=== PATIENT | male | born 1985 | race Caucasian/White ===

== ENCOUNTER 2018-04-05 01:03 | Inpatient (IN) | payer OTHER ==
[2018-04-05] MEDS ORDERED: ONDANSETRON PF 4 MG/2 ML VIAL. IV ×3 (03:30→09:45)
[2018-04-05] MEDS: IV NORMAL SALINE 1000ML BAG 1,000 ML IV ×2 (03:38→13:30)
[2018-04-05] MEDS: MORPHINE SULFATE 10 MG/ML VIAL. IV ×2 (06:29→20:47)
[2018-04-05] MEDS: IV RINGERS,LACTATED 1000ML 1,000 ML IV (07:13)
[2018-04-05] MEDS ORDERED: fentaNYL PF VIAL 100 MCG/2 ML VIAL IV (07:15)
[2018-04-05] MEDS ORDERED: LIDOCAINE 1% PF 2 ML VIAL. ID (07:15)
[2018-04-05] MEDS ORDERED: PROPOFOL 20 ML IV (07:40)
[2018-04-05] MEDS ORDERED: LIDOCAINE 2% PF Vial for OR 5 ML VIAL. (07:40)
[2018-04-05] MEDS ORDERED: ROCURONIUM 50 MG/5 ML VIAL. (07:41)
[2018-04-05] MEDS ORDERED: fentaNYL PF VIAL 100 MCG/2 ML VIAL ×3 (07:42→10:32)
[2018-04-05] MEDS ORDERED: NEOSTIGMINE METHYLSULFATE 5 MG/5 ML SYRINGE. (07:46)
[2018-04-05] MEDS ORDERED: GLYCOPYRROLATE 1 MG/5 ML VIAL. (07:47)
[2018-04-05] MEDS ORDERED: MIDAZOLAM HCL/PF 2 MG/2 ML VIAL. (07:59)
[2018-04-05] MEDS ORDERED: SUCCINYLCHOLINE 200 MG/10 ML VIAL. (08:13)
[2018-04-05] MEDS ORDERED: ONDANSETRON PF 4 MG/2 ML VIAL. (08:54)
[2018-04-05] MEDS ORDERED: DEXAMETHASONE SOD PHOS 20 MG/5 ML VIAL. (08:54)
[2018-04-05] MEDS: BUPIVACAINE-EPI 0.25%-1:200000 50 ML VIAL. (09:05)
[2018-04-05] MEDS ORDERED: 0.9 % SODIUM CHLORIDE 10 ML DISP.SYRIN. IV (09:45)
[2018-04-05] MEDS ORDERED: diphenhydrAMINE HCL 25 MG CAPSULE PO (09:45)
[2018-04-05] MEDS ORDERED: diphenhydrAMINE 50 MG/ML VIAL IV (09:45)
[2018-04-05] MEDS ORDERED: DEXTROSE 50% 25 GM / 50ML DISP.SYRIN. IV (09:45)
[2018-04-05] MEDS ORDERED: MORPHINE SULFATE 2 MG/ML DISP.SYRIN. IV (09:45)
[2018-04-05] MEDS: fentaNYL PF VIAL 100 MCG/2 ML VIAL IV ×5 (09:59→11:11)
[2018-04-05] MEDS ORDERED: MORPHINE SULFATE 2 MG/ML DISP.SYRIN. (10:17)
[2018-04-05] MEDS: MORPHINE SULFATE 2 MG/ML DISP.SYRIN. IV ×2 (10:21→10:31)
[2018-04-05] MEDS ORDERED: PROCHLORPERAZINE 10 MG/2 ML VIAL. (10:32)
[2018-04-05] MEDS: PROCHLORPERAZINE 10 MG/2 ML VIAL. IV (10:39)
[2018-04-05] MEDS: POTASSIUM CL 20MEQ-0.45% NACL 1,000 ML IV ×2 (11:24→20:00)
[2018-04-05] MEDS: oxyCODONE/APAP 7.5/325 1 TAB TABLET PO ×2 (14:41→17:30)
[2018-04-05] MEDS: ENOXAPARIN 40 MG/0.4 ML SYRINGE. SQ (14:42)
[2018-04-05] MEDS: DOCUSATE SODIUM 100 MG CAPSULE. PO (20:46)
[2018-04-06] MEDS: oxyCODONE/APAP 7.5/325 1 TAB TABLET PO ×4 (01:32→12:52)
[2018-04-06] MEDS: DOCUSATE SODIUM 100 MG CAPSULE. PO (09:13)
[2018-04-06] MEDS: ENOXAPARIN 40 MG/0.4 ML SYRINGE. SQ (09:15)
[2018-04-06] MEDS ORDERED: LACTOBACILLUS RHAMNOSUS GG 1 CAPSULE. PO (21:00)
== END 2018-04-06 13:05 | disposition home or self-care (01) | DRG 343 ==
LOC: 4 NORTH 01:03
PROC: 0DTJ4ZZ Resection of Appendix, Percutaneous Endoscopic Approach (ICD-10-PCS; principal; 2018-04-05 08:18)
DX: K35.80 Unspecified acute appendicitis (principal)
CPT/HCPCS: 88304; A7015; J0330; J0690; J0780; J1100; J1650; J2001; J2250; J2270; J2405; J2704; J2710; J3010; J3490; J7030; J7120